=== PATIENT | male | born 1960 | race African-American/Black ===

== ENCOUNTER 2019-06-08 15:09 | Emergency (ER) | payer MEDICAID ==
[~2019-06-08] VITALS: Ht 175.3 cm; Wt 67.0 kg
[~2019-06-08 15:09] MED LIST: METF-816 PO
[2019-06-08 16:42] VITALS: BP 140/80
== END 2019-06-08 16:43 | disposition home or self-care (01) ==
LOC: ER 15:09
DX: Z76.0 Encounter for issue of repeat prescription (principal); F31.9 Bipolar disorder, unspecified; E11.9 Type 2 diabetes mellitus without complications; E78.00 Pure hypercholesterolemia, unspecified; I10 Essential (primary) hypertension
CPT/HCPCS: 82962; 99282